=== PATIENT | male | born 1950 | race Caucasian/White ===

== ENCOUNTER 2019-04-30 14:38 | Emergency (ER) | payer OTHER, MEDICARE, BC ==
[2019-04-30] MEDS ORDERED: Metoprolol Tartrate 5 MG/5 ML SDV IVPUSH ONE (17:56)
[2019-04-30] MEDS ORDERED: Metoprolol Tartrate 25 MG Tab PO ONE (18:44)
--- NOTE | 2019-04-30 18:47 | EDM.PDOC ---
ED HPI GENERAL MEDICAL PROBLEM - General Chief Complaint: Cardiovascular Problem Stated Complaint: IRREGULAR HEARTBEAT Time Seen by Provider: 04/30/19 16:15 - History of Present Illness INITIAL COMMENTS - FREE TEXT/NARRATIVE: 68-year-old male presents to the emergency room after being sent here [place] [facility] with atrial fibrillation. The patient was seen in the clinic roughly 2 weeks ago and was not in A. fib he is not sure exactly when he went into A. fib however last Tuesday he had an episode of shortness of breath while climbing some stairs which was unusual for him and he had trouble with shortness of breath the following day the shortness of breath seems to have resolved. The patient was treated at the [place] [facility] a couple weeks ago with antibiotics and steroids for bronchitis. He is still coughing some but nothing like he was. - Related Data Allergies Allergy/AdvReac Type Severity Reaction Status Date / Time No Known Allergies Allergy Verified 04/30/19 14:48 Home Meds: Home Meds Apixaban [Eliquis] 2.5 mg PO Q12H #30 tablet 04/30/19 [Rx] Citalopram Hydrobromide [Celexa] 40 mg PO DAILY 04/30/19 [History] Lisinopril [Zestril] 10 mg PO DAILY 04/30/19 [History] Metoprolol Tartrate [Lopressor] 25 mg PO Q12HR #30 tab 04/30/19 [Rx] Sildenafil [Viagra] 100 mg PO BEDTIME PRN 04/30/19 [History] Sodium Bicarbonate 650 mg PO BID 04/30/19 [History] atorvaSTATin Calcium [Atorvastatin Calcium] 20 mg PO BEDTIME 04/30/19 [History] traZODone HCl [Trazodone HCl] 100 mg PO BEDTIME 04/30/19 [History] Past Medical History HEENT History: Reports: Hard of Hearing Cardiovascular History: Reports: High Cholesterol, Hypertension Respiratory History: Reports: Sleep Apnea Gastrointestinal History: Reports: None Genitourinary History: Reports: Chronic Renal Insuffiency, Other (See Below) Other Genitourinary History: ED Musculoskeletal History: Reports: None Neurological History: Reports: None Psychiatric History: Reports: Depression, Other (See Below) Other Psychiatric History: Insomnia Endocrine/Metabolic History: Reports: Obesity/BMI 30+ Hematologic History: Reports: None Immunologic History: Reports: None Oncologic (Cancer) History: Reports: None Dermatologic History: Reports: None - Infectious Disease History Infectious Disease History: Reports: None Social & Family History - Tobacco Use Smoking Status *Q: Never Smoker - Caffeine Use Caffeine Use: Reports: Coffee - Recreational Drug Use Recreational Drug Use: No ED ROS GENERAL - Review of Systems Review Of Systems: See Below Constitutional: Reports: No Symptoms. Denies: Fever, Chills HEENT: Reports: No Symptoms Respiratory: Reports: Shortness of Breath (Recently this was last week), Cough. Denies: Sputum Cardiovascular: Reports: Dyspnea on Exertion (Last week he had some). Denies: Chest Pain, Edema Endocrine: Reports: No Symptoms GI/Abdominal: Reports: No Symptoms Neurological: Reports: No Symptoms ED EXAM, GENERAL - Physical Exam Exam: See Below Exam Limited By: No Limitations General Appearance: Alert, No Apparent Distress Head: Atraumatic, Normocephalic Neck: Normal Inspection Respiratory/Chest: No Respiratory Distress, Lungs Clear, Normal Breath Sounds Cardiovascular: Regular Rate, Rhythm, No Edema, No Murmur, Irregularly Irregular , Other ([place] in the 120s to 130s just did come down to the 1 teens to 120s) EKG INTERPRETATION Rhythm: A-Fib [place]: Normal P-Wave: Absent QRS: Other (Low voltage in the extremities) ST-T: Normal QT: Normal Course - Vital Signs Last Recorded V/S: Last Vital Signs Temp 36.3 C 04/30/19 14:45 Pulse 118 H 04/30/19 19:25 Resp 20 04/30/19 19:25 BP 134/87 04/30/19 19:25 Pulse Ox 92 L 04/30/19 19:25 - Orders/Labs/Meds Orders: Active Orders 24 hr Category Date Time Status EKG 12 Lead [EKG Documentation Completion] [RC] STAT Care 04/30/19 15:58 Active Chest 1V Frontal [CR] Stat Exams 04/30/19 16:30 Taken Labs: Laboratory Tests 04/30/19 04/30/19 04/30/19 Range/Units 15:00 15:00 15:00 WBC 5.49 (4.23-9.07) K/mm3 RBC 4.85 (4.63-6.08) M/mm3 Hgb 14.6 (13.7-17.5) gm/dl Hct 45.1 (40.1-51.0) % MCV 93.0 H (79.0-92.2) fl MCH 30.1 (25.7-32.2) pg MCHC 32.4 (32.2-35.5) g/dl RDW Std Deviation 46.7 H (35.1-43.9) fL Plt Count 196 (163-337) K/mm3 MPV 11.1 (9.4-12.3) fl Neut % (Auto) 71.0 H (34.0-67.9) % Lymph % (Auto) 15.3 L (21.8-53.1) % [place] % (Auto) 11.7 (5.3-12.2) % Eos % (Auto) 1.6 (0.8-7.0) Baso % (Auto) 0.4 (0.1-1.2) % Neut # (Auto) 3.90 (1.78-5.38) K/mm3 Lymph # (Auto) 0.84 L (1.32-3.57) K/mm3 [place] # (Auto) 0.64 (0.30-0.82) K/mm3 Eos # (Auto) 0.09 (0.04-0.54) K/mm3 Baso # (Auto) 0.02 (0.01-0.08) K/mm3 Sodium 142 (136-145) mEq/L Potassium 4.1 (3.5-5.1) mEq/L Chloride 106 (98-107) mEq/L Carbon Dioxide 30 (21-32) mEq/L Anion Gap 10.1 (5-15) BUN 21 H (7-18) mg/dL Creatinine 2.0 H (0.7-1.3) mg/dL Est Cr Clr Drug Dosing 37.72 mL/min Estimated GFR (MDRD) 33 (>60) mL/min BUN/Creatinine Ratio 10.5 L (14-18) Glucose 107 (80-115) mg/dL Calcium 8.5 (8.5-10.1) mg/dL Total Bilirubin 0.9 (0.2-1.0) mg/dL AST 19 (15-37) U/L ALT 35 (16-63) U/L Alkaline Phosphatase 117 H (46-116) U/L CK-MB (CK-2) 1.4 (0-3.6) ng/ml Troponin I < 0.017 (0.00-0.056) ng/mL Total Protein 7.0 (6.4-8.2) g/dl Albumin 3.5 (3.4-5.0) g/dl Globulin 3.5 gm/dL Albumin/Globulin Ratio 1.0 (1-2) TSH 3rd Generation 1.454 (0.358-3.74) uIU/mL Meds: Medications Discontinued Medications Generic Name Dose Route Start Last Admin Trade Name Kingq PRN Reason Stop Dose Admin Metoprolol Tartrate 5 mg 04/30/19 17:56 04/30/19 18:09 Lopressor IVPUSH 04/30/19 17:57 5 mg ONETIME ONE Administration Metoprolol Tartrate 25 mg 04/30/19 18:44 04/30/19 19:20 Lopressor PO 04/30/19 18:45 25 mg ONETIME ONE Administration - Re-Assessments/Exams Free Text/Narrative Re-Assessment/Exam: 04/30/19 18:43 Atrial fibrillation mild rapid ventricular response usually in the 1 teens occasionally 120s or 130s. And he is asymptomatic with this. We will start him on Lopressor 25 mg twice daily dose may need to be adjusted depending on his pulse and blood pressure. I am was started on Eliquis 5 mg twice daily I discussed the risks of Eliquis such as bleeding however it is much less than the risk of stroke and the patient is willing to give this a try. Should be used with the Lopressor as the citalopram can potentiate the Lopressor so we will start on a fairly low-dose. But this is getting to be watched closely. Departure - Departure Time of Disposition: 18:44 Disposition: Home, Self-Care 01 Clinical Impression: Atrial fibrillation Prescriptions: Metoprolol Tartrate [Lopressor] 25 mg PO Q12HR #30 tab Apixaban [Eliquis] 2.5 mg PO Q12H #30 tablet Instructions: Atrial Fibrillation, [id number] Referrals: Hannah Gannon MD [Primary Care Provider] - Forms: ED Department Discharge Additional Instructions: Return to the emergency room with any questions problems or worsening symptoms. Follow-up with the [place] [facility] this next week for recheck. Take the medications as directed I have given you a 15-day supply of each with 1 refill as [facility] and the Lopressor, or Metroprolol may need its dosage adjusted. At any rate do not allow yourself to run out of these medications. The metoprolol, or Lopressor may be potentiated, or act like a stronger dose, because of the citalopram you are taking. This should not be a big problem it just needs to be monitored closely. Sepsis Event Note - Evaluation Sepsis Screening Result: No Definite Risk - Focused Exam Vital Signs: Vital Signs Temp Pulse Pulse Resp BP BP Pulse Ox 04/30/19 19:25 118 H 20 134/87 92 L 04/30/19 19:20 118 H 134/87 04/30/19 18:09 134 H 134/88 04/30/19 14:45 36.3 C 160 H 18 134/77 95 Date Exam was Performed: 04/30/19 Time Exam was Performed: 22:25 - My Orders Last 24 Hours: My Active Orders 04/30/19 15:58 EKG 12 Lead [EKG Documentation Completion] [RC] STAT 04/30/19 16:30 Chest 1V Frontal [CR] Stat - Assessment/Plan Last 24 Hours: My Active Orders 04/30/19 15:58 EKG 12 Lead [EKG Documentation Completion] [RC] STAT 04/30/19 16:30 Chest 1V Frontal [CR] Stat
--- NOTE | 2019-05-01 09:39 | CR ---
Chest: Portable view of the chest was obtained. Comparison: No previous chest imaging. Heart size is normal. Tortuous thoracic aorta is seen. Lungs are clear with no acute parenchymal change. Bony structures are grossly intact. Impression: 1. Nothing acute is seen on portable chest x-ray. Diagnostic code #1 This report was dictated in [place] Standard Time
== END 2019-04-30 19:24 | disposition home or self-care (01) ==
LOC: JD.ED 14:38
DX: I48.91 Unspecified atrial fibrillation (principal); I12.9 Hypertensive chronic kidney disease with stage 1 through stage 4 chronic kidney disease, or unspecified chronic kidney disease; N18.9 Chronic kidney disease, unspecified; E78.00 Pure hypercholesterolemia, unspecified; Z79.01 Long term (current) use of anticoagulants; Z79.899 Other long term (current) drug therapy
CPT/HCPCS: 36415; 71045; 80053; 82553; 84443; 84484; 85025; 93005; 96374; 99285; A9270; J3490; 93010; 99284

== ENCOUNTER 2019-05-03 09:14 | Emergency (ER) | payer OTHER, MEDICARE, BC ==
[2019-05-03] MEDS ORDERED: Sodium Chloride 0.9% 10 ML Syringe FLUSH PRN (09:42)
[2019-05-03] MEDS ORDERED: Albuterol/Ipratropium 3.0-0.5 MG/3 ML Neb Soln NEB ONE (09:55)
[2019-05-03] MEDS ORDERED: Metoprolol Tartrate 5 MG/5 ML SDV IVPUSH ONE (09:58)
[2019-05-03] MEDS: Diltiazem 50 MG/10 ML SDV IVPUSH ONE ×2 (10:32→12:09)
[2019-05-03] MEDS ORDERED: Furosemide 40 MG/4 ML VIAL IVPUSH ONE (10:50)
--- NOTE | 2019-05-03 10:56 | CR ---
Chest: Portable view of the chest was obtained. Comparison: Prior chest x-ray of 04/30/19. Heart size is normal. Tortuous thoracic aorta is seen. Lungs are clear with no acute parenchymal change. Impression: 1. Nothing acute is appreciated on portable chest x-ray. Diagnostic code #1 This report was dictated in [place] Standard Time
--- NOTE | 2019-05-03 12:01 | EDM.PDOC ---
ED HPI GENERAL MEDICAL PROBLEM - General Chief Complaint: Cardiovascular Problem Stated Complaint: SENT BY ID FOR CHEST ISSUES Time Seen by Provider: 05/03/19 09:25 Source of Information: Reports: Patient, RN Notes Reviewed - History of Present Illness INITIAL COMMENTS - FREE TEXT/NARRATIVE: 68 year old male with cough, dyspnea, not feeling well. [facility] to [facility]. They saw that he was in a fib with RVR and sent him here. He does not currently feel chest pain or palpitations but short of breath with even minimal exertion. He has been coughing for more than 10 days occasionally productive. Has been on an antibiotic. No recent fever or chills. Was recently seen in this ED, found to be in new onset a fib, started on metropolol 25 bid and blood thinner therapy as well. Hx of smoking many yrs ago. - Related Data Allergies Allergy/AdvReac Type Severity Reaction Status Date / Time No Known Allergies Allergy Verified 05/03/19 09:27 Home Meds: Home Meds Apixaban [Eliquis] 2.5 mg PO Q12H #30 tablet 04/30/19 [Rx] Citalopram Hydrobromide [Celexa] 40 mg PO DAILY 04/30/19 [History] Lisinopril [Zestril] 10 mg PO DAILY 04/30/19 [History] Metoprolol Tartrate [Lopressor] 25 mg PO Q12HR #30 tab 04/30/19 [Rx] Sildenafil [Viagra] 100 mg PO BEDTIME PRN 04/30/19 [History] Sodium Bicarbonate 650 mg PO BID 04/30/19 [History] atorvaSTATin Calcium [Atorvastatin Calcium] 20 mg PO BEDTIME 04/30/19 [History] traZODone HCl [Trazodone HCl] 100 mg PO BEDTIME 04/30/19 [History] Diltiazem [Cardizem CD] 120 mg PO DAILY #30 cap.er 05/03/19 [Rx] Furosemide [Lasix] 20 mg PO DAILY #30 tab 05/03/19 [Rx] Past Medical History HEENT History: Reports: Hard of Hearing Cardiovascular History: Reports: Afib, High Cholesterol, Hypertension Respiratory History: Reports: Sleep Apnea Gastrointestinal History: Reports: None Genitourinary History: Reports: Chronic Renal Insuffiency, Other (See Below) Other Genitourinary History: ED Musculoskeletal History: Reports: None Neurological History: Reports: None Psychiatric History: Reports: Depression, Other (See Below) Other Psychiatric History: Insomnia Endocrine/Metabolic History: Reports: Obesity/BMI 30+ Hematologic History: Reports: None Immunologic History: Reports: None Oncologic (Cancer) History: Reports: None Dermatologic History: Reports: None - Infectious Disease History Infectious Disease History: Reports: None Social & Family History - Family History Family Medical History: Noncontributory - Tobacco Use Smoking Status *Q: Never Smoker - Caffeine Use Caffeine Use: Reports: Coffee, Soda - Recreational Drug Use Recreational Drug Use: No ED ROS GENERAL - Review of Systems Review Of Systems: See Below Constitutional: Denies: Fever, Chills, Diaphoresis HEENT: Denies: Rhinitis, Sinus Problem Respiratory: Reports: Shortness of Breath, Wheezing, Cough, Sputum. Denies: Hemoptysis Cardiovascular: Denies: Chest Pain GI/Abdominal: Denies: Abdominal Pain, Nausea, Vomiting Musculoskeletal: Denies: Shoulder Pain, Arm Pain Skin: Reports: No Symptoms Neurological: Reports: No Symptoms ED EXAM, GENERAL - Physical Exam Exam: See Below General Appearance: Alert, Mild Distress Eye Exam: Bilateral Eye: PERRL Nose: Normal Inspection Throat/Mouth: Normal Inspection, Normal Oropharynx Head: Atraumatic Neck: Supple, Full Range of Motion, Other (No JVD) Respiratory/Chest: Wheezing. No: Rales (Moderate bilateral), Rhonchi Cardiovascular: Tachycardia, Irregularly Irregular GI/Abdominal: Soft, Non-Tender Extremities: Normal Inspection, Normal Range of Motion Neurological: Alert, Oriented, No Motor/Sensory Deficits Skin Exam: Warm, Dry, Normal Color EKG INTERPRETATION EKG Date: 05/03/19 Rhythm: A-Fib Rate (Beats/Min): 123 [place]: Normal P-Wave: Absent QRS: Normal ST-T: Normal Course - Vital Signs Last Recorded V/S: Last Vital Signs Temp 97.3 F 05/03/19 09:23 Pulse 118 H 05/03/19 10:10 Resp 20 05/03/19 09:23 BP 144/101 H 05/03/19 10:10 Pulse Ox 91 L 05/03/19 12:40 - Orders/Labs/Meds Labs: Laboratory Tests 05/03/19 05/03/19 05/03/19 Range/Units 09:30 09:30 09:30 WBC 6.19 (4.23-9.07) K/mm3 RBC 4.95 (4.63-6.08) M/mm3 Hgb 15.0 (13.7-17.5) gm/dl Hct 45.5 (40.1-51.0) % MCV 91.9 (79.0-92.2) fl MCH 30.3 (25.7-32.2) pg MCHC 33.0 (32.2-35.5) g/dl RDW Std Deviation 46.1 H (35.1-43.9) fL Plt Count 229 (163-337) K/mm3 MPV 10.4 (9.4-12.3) fl Neut % (Auto) 73.6 H (34.0-67.9) % Lymph % (Auto) 12.6 L (21.8-53.1) % [place] % (Auto) 11.0 (5.3-12.2) % Eos % (Auto) 2.6 (0.8-7.0) Baso % (Auto) 0.2 (0.1-1.2) % Neut # (Auto) 4.56 (1.78-5.38) K/mm3 Lymph # (Auto) 0.78 L (1.32-3.57) K/mm3 [place] # (Auto) 0.68 (0.30-0.82) K/mm3 Eos # (Auto) 0.16 (0.04-0.54) K/mm3 Baso # (Auto) 0.01 (0.01-0.08) K/mm3 Sodium 141 (136-145) mEq/L Potassium 4.5 (3.5-5.1) mEq/L Chloride 105 (98-107) mEq/L Carbon Dioxide 28 (21-32) mEq/L Anion Gap 12.5 (5-15) BUN 25 H (7-18) mg/dL Creatinine 2.0 H (0.7-1.3) mg/dL Est Cr Clr Drug Dosing 37.72 mL/min Estimated GFR (MDRD) 33 (>60) mL/min BUN/Creatinine Ratio 12.5 L (14-18) Glucose 114 (80-115) mg/dL Calcium 8.8 (8.5-10.1) mg/dL Total Bilirubin 0.9 (0.2-1.0) mg/dL AST 21 (15-37) U/L ALT 33 (16-63) U/L Alkaline Phosphatase 123 H (46-116) U/L Troponin I < 0.017 (0.00-0.056) ng/mL C-Reactive Protein (<1.0) mg/dL NT-Pro-B Natriuret Pep 2784 H (0-125) pg/mL Total Protein 7.7 (6.4-8.2) g/dl Albumin 3.6 (3.4-5.0) g/dl Globulin 4.1 gm/dL Albumin/Globulin Ratio 0.9 L (1-2) 05/03/19 Range/Units 09:30 WBC (4.23-9.07) K/mm3 RBC (4.63-6.08) M/mm3 Hgb (13.7-17.5) gm/dl Hct (40.1-51.0) % MCV (79.0-92.2) fl MCH (25.7-32.2) pg MCHC (32.2-35.5) g/dl RDW Std Deviation (35.1-43.9) fL Plt Count (163-337) K/mm3 MPV (9.4-12.3) fl Neut % (Auto) (34.0-67.9) % Lymph % (Auto) (21.8-53.1) % [place] % (Auto) (5.3-12.2) % Eos % (Auto) (0.8-7.0) Baso % (Auto) (0.1-1.2) % Neut # (Auto) (1.78-5.38) K/mm3 Lymph # (Auto) (1.32-3.57) K/mm3 [place] # (Auto) (0.30-0.82) K/mm3 Eos # (Auto) (0.04-0.54) K/mm3 Baso # (Auto) (0.01-0.08) K/mm3 Sodium (136-145) mEq/L Potassium (3.5-5.1) mEq/L Chloride (98-107) mEq/L Carbon Dioxide (21-32) mEq/L Anion Gap (5-15) BUN (7-18) mg/dL Creatinine (0.7-1.3) mg/dL Est Cr Clr Drug Dosing mL/min Estimated GFR (MDRD) (>60) mL/min BUN/Creatinine Ratio (14-18) Glucose (80-115) mg/dL Calcium (8.5-10.1) mg/dL Total Bilirubin (0.2-1.0) mg/dL AST (15-37) U/L ALT (16-63) U/L Alkaline Phosphatase (46-116) U/L Troponin I (0.00-0.056) ng/mL C-Reactive Protein 5.5 H* (<1.0) mg/dL NT-Pro-B Natriuret Pep (0-125) pg/mL Total Protein (6.4-8.2) g/dl Albumin (3.4-5.0) g/dl Globulin gm/dL Albumin/Globulin Ratio (1-2) Meds: Medications Discontinued Medications Generic Name Dose Route Start Last Admin Trade Name Freq PRN Reason Stop Dose Admin Albuterol 2.5 mg 05/03/19 12:40 05/03/19 12:46 Proventil Neb Soln [facility] 05/03/19 12:41 2.5 mg ONETIME ONE Administration Albuterol/Ipratropium 3 ml 05/03/19 09:55 05/03/19 09:59 Duoneb 3.0-0.5 Mg/3 Ml [facility] 05/03/19 09:56 3 ml ONETIME ONE Administration Diltiazem HCl 20 mg 05/03/19 10:26 05/03/19 12:09 Cardizem IVPUSH 05/03/19 10:27 5 mg ONETIME ONE Administration Furosemide 40 mg 05/03/19 10:50 05/03/19 11:06 Lasix IVPUSH 05/03/19 10:51 40 mg NOW ONE Administration Metoprolol Tartrate 5 mg 05/03/19 09:58 05/03/19 10:10 Lopressor IVPUSH 05/03/19 09:59 5 mg ONETIME ONE Administration Sodium Chloride 10 ml 05/03/19 09:42 05/03/19 09:46 Saline Flush FLUSH 10 ml ASDIRECTED PRN Administration Keep Vein Open - Re-Assessments/Exams Free Text/Narrative Re-Assessment/Exam: 05/05/19 07:35 Labs did come back relatively normal, presents present with A. fib RSR also moderate wheezing, very mild pulmonary congestion on his chest x-ray read out as normal by radiologist. He was given a DuoNeb and that did help clear his wheezing quite a lot. With his evidence of mild pulmonary congestion on his chest x-ray he was given 40 of Lasix IV and did void a fair amount while in the ED. He was given 5 mg Lopressor IV which slowed his rate a small amount but not significantly. In 10 mg diltiazem which did bring his rate down into the 90s to low 100s. An additional 5 mg diltiazem IV prior to discharge. He was feeling much better at time of discharge. Discharge instructions as documented. Departure - Departure Time of Disposition: 11:58 Disposition: Home, Self-Care 01 Condition: Fair Clinical Impression: Atrial fibrillation with RVR, Dyspnea, Congestive heart failure (CHF), Renal insufficiency syndrome Prescriptions: Diltiazem [Cardizem CD] 120 mg PO DAILY #30 cap.er Furosemide [Lasix] 20 mg PO DAILY #30 tab Instructions: Heart Failure, [id number], Heart-Healthy Eating Plan, Atrial Fibrillation, [id number] Referrals: Hannah Gannon MD [Primary Care Provider] - Forms: ED Department Discharge Additional Instructions: Continue metoprolol 25 mg twice daily and other medications as previously prescribed. Cardizem 120 mg daily with your first dose as soon as you get your prescription filled today. Lasix 20 mg every morning. The prescriptions for the Cardizem and the Lasix have been sent electronically to your regular pharmacy. First dose of Lasix has been given here in the ED IV. Albuterol inhaler 2 puffs every 4-6 hours as needed eating, severe cough or difficulty breathing. [facility], return to ED as needed if symptoms worsening in any way. Sepsis Event Note - Evaluation Sepsis Screening Result: No Definite Risk - Focused Exam Date Exam was Performed: 05/05/19 Time Exam was Performed: 07:21
[2019-05-03] MEDS ORDERED: Albuterol 0.083% 2.5 MG/3 ML Neb Soln NEB ONE (12:40)
== END 2019-05-03 13:13 | disposition home or self-care (01) ==
LOC: JD.ED 09:14
DX: I13.0 Hypertensive heart and chronic kidney disease with heart failure and stage 1 through stage 4 chronic kidney disease, or unspecified chronic kidney disease (principal); I50.9 Heart failure, unspecified; I48.91 Unspecified atrial fibrillation; E78.00 Pure hypercholesterolemia, unspecified; N18.9 Chronic kidney disease, unspecified; F32.9 Major depressive disorder, single episode, unspecified; E66.9 Obesity, unspecified; Z79.01 Long term (current) use of anticoagulants; Z79.899 Other long term (current) drug therapy; Z68.35 Body mass index [BMI] 35.0-35.9, adult
CPT/HCPCS: 36415; 71045; 80053; 83880; 84484; 85025; 86140; 93005; 94640; 96374; 96375; 96376; 99285; J1940; J3490; 93010; 99283; J7620-GY

== ENCOUNTER 2019-07-20 09:41 | Emergency (ER) | payer OTHER, MEDICARE, BC ==
[2019-07-20] MEDS ORDERED: Sodium Chloride 0.9% 10 ML Syringe FLUSH PRN (09:57)
[2019-07-20] MEDS ORDERED: Albuterol 6.7 GM Inhaler INH ONE (10:15)
--- NOTE | 2019-07-20 10:25 | EDM.PDOC ---
ED HPI GENERAL MEDICAL PROBLEM - General Chief Complaint: Respiratory Problem Stated Complaint: FLUID IN LUNGS/POST HEART SURGERY Time Seen by Provider: 07/20/19 09:57 Source of Information: Reports: Patient History Limitations: Reports: No Limitations - History of Present Illness INITIAL COMMENTS - FREE TEXT/NARRATIVE: [place] [facility] for shortness of breath. He had a valve replaced and 4 vessel bypass 2 weeks ago. He had a follow up appointment in [place] yesterday and it was found he had a pleural effusion. He is not sure on what side. He had a thorocentesis done and they removed 2L according to the patient. This morning he had shortness of breath. He called his cardiology team and they recommended he go to his primary care provider and get a CXR. The [facility] sent him to the ER to be evaluated. They said his oxygen saturations were low in the upper 60s. When he arrived here his sats were 94%. He has some gurgling lung sounds when her breaths. He has no chest pain but he is short of breath. He has no abdominal pain, nausea or vomiting. He has some swelling in both legs but none more then normal. Onset: Gradual Duration: Hour(s): Severity: Moderate Improves with: Reports: None Worsens with: Reports: None Associated Symptoms: Reports: Shortness of Breath. Denies: Chest Pain, Cough, Fever/Chills, Headaches, Nausea/Vomiting - Related Data Allergies Allergy/AdvReac Type Severity Reaction Status Date / Time No Known Allergies Allergy Verified 07/20/19 10:01 Home Meds: Home Meds Citalopram Hydrobromide [Celexa] 20 mg PO DAILY 04/30/19 [History] Sodium Bicarbonate 650 mg PO BID 04/30/19 [History] atorvaSTATin Calcium [Atorvastatin Calcium] 20 mg PO BEDTIME 04/30/19 [History] lisinopriL [Zestril] 5 mg PO DAILY 04/30/19 [History] traZODone HCl [Trazodone HCl] 100 mg PO BEDTIME 04/30/19 [History] Amiodarone [Cordarone] 200 mg PO DAILY 07/20/19 [History] Apixaban [Eliquis] 5 mg PO BID 07/20/19 [History] Aspirin 81 mg PO DAILY 07/20/19 [History] Finasteride [Proscar] 5 mg PO DAILY 07/20/19 [History] Metoprolol Succinate [Kapspargo Sprinkle] 75 mg PO BID 07/20/19 [History] Past Medical History HEENT History: Reports: Hard of Hearing Cardiovascular History: Reports: Afib, High Cholesterol, Hypertension Respiratory History: Reports: Sleep Apnea Gastrointestinal History: Reports: None Genitourinary History: Reports: Chronic Renal Insuffiency, Other (See Below) Other Genitourinary History: ED Musculoskeletal History: Reports: None Neurological History: Reports: None Psychiatric History: Reports: Depression, Other (See Below) Other Psychiatric History: Insomnia Endocrine/Metabolic History: Reports: Obesity/BMI 30+ Hematologic History: Reports: None Immunologic History: Reports: None Oncologic (Cancer) History: Reports: None Dermatologic History: Reports: None - Infectious Disease History Infectious Disease History: Reports: None Social & Family History - Family History Family Medical History: Noncontributory - Tobacco Use Smoking Status *Q: Never Smoker - Caffeine Use Caffeine Use: Reports: None - Recreational Drug Use Recreational Drug Use: No ED ROS GENERAL - Review of Systems Review Of Systems: See Below Constitutional: Reports: No Symptoms HEENT: Reports: No Symptoms Respiratory: Reports: Shortness of Breath. Denies: Cough Cardiovascular: Reports: No Symptoms Endocrine: Reports: No Symptoms GI/Abdominal: Reports: No Symptoms : Reports: No Symptoms ED EXAM, GENERAL - Physical Exam Exam: See Below Exam Limited By: No Limitations General Appearance: Alert, No Apparent Distress Ears: Normal External Exam Nose: Normal Inspection Head: Atraumatic, Normocephalic Neck: Normal Inspection Respiratory/Chest: No Respiratory Distress, Rhonchi Cardiovascular: Regular Rate, Rhythm, No Edema, No Murmur GI/Abdominal: Soft, Non-Tender, No Organomegaly, No Mass Back Exam: Normal Inspection Extremities: Normal Inspection Course - Vital Signs Last Recorded V/S: Last Vital Signs Temp 97.5 F 07/20/19 09:54 Pulse 91 07/20/19 09:54 Resp 22 H 07/20/19 09:54 BP 103/65 07/20/19 09:54 Pulse Ox 94 L 07/20/19 09:54 - Orders/Labs/Meds Orders: Active Orders 24 hr Category Date Time Status Cardiac Monitoring [RC] . DIRECTED Care 07/20/19 09:57 Active EKG Documentation Completion [RC] STAT Care 07/20/19 09:58 Active Oxygen Therapy [RC] PRN Care 07/20/19 09:57 Active Peripheral IV Care [RC] . DIRECTED Care 07/20/19 09:58 Active RT Post Treatment Assessment [RC] Click to Edit Care 07/20/19 10:16 Active RT Pre-Treatment Assessment [RC] Click to Edit Care 07/20/19 10:16 Active Sodium Chloride 0.9% [Saline Flush] Med 07/20/19 09:57 Active 10 ml FLUSH ASDIRECTED PRN Peripheral IV Insertion Adult [OM.PC] Stat Oth 07/20/19 09:57 Ordered Medication Orders Sodium Chloride (Saline Flush) 10 ml FLUSH ASDIRECTED PRN PRN Reason: Keep Vein Open Labs: Laboratory Tests 07/20/19 07/20/19 07/20/19 Range/Units 10:26 10:26 10:26 WBC 6.48 (4.23-9.07) K/mm3 RBC 3.16 L (4.63-6.08) M/mm3 Hgb 9.4 L D (13.7-17.5) gm/dl Hct 30.9 L (40.1-51.0) % MCV 97.8 H D (79.0-92.2) fl MCH 29.7 (25.7-32.2) pg MCHC 30.4 L (32.2-35.5) g/dl RDW Std Deviation 50.2 H (35.1-43.9) fL Plt Count 406 H D (163-337) K/mm3 MPV 9.7 (9.4-12.3) fl Neut % (Auto) 73.4 H (34.0-67.9) % Lymph % (Auto) 12.5 L (21.8-53.1) % [place] % (Auto) 12.8 H (5.3-12.2) % Eos % (Auto) 0.6 L (0.8-7.0) Baso % (Auto) 0.5 (0.1-1.2) % Neut # (Auto) 4.76 (1.78-5.38) K/mm3 Lymph # (Auto) 0.81 L (1.32-3.57) K/mm3 [place] # (Auto) 0.83 H (0.30-0.82) K/mm3 Eos # (Auto) 0.04 (0.04-0.54) K/mm3 Baso # (Auto) 0.03 (0.01-0.08) K/mm3 Sodium 142 (136-145) mEq/L Potassium 5.9 H (3.5-5.1) mEq/L Chloride 107 (98-107) mEq/L Carbon Dioxide 27 (21-32) mEq/L Anion Gap 13.9 (5-15) BUN 39 H (7-18) mg/dL Creatinine 2.4 H (0.7-1.3) mg/dL Est Cr Clr Drug Dosing TNP Estimated GFR (MDRD) 27 (>60) mL/min BUN/Creatinine Ratio 16.3 (14-18) Glucose 110 (83-115) mg/dL Calcium 8.6 (8.5-10.1) mg/dL Total Bilirubin 1.0 (0.2-1.0) mg/dL AST 26 (15-37) U/L ALT 40 (16-63) U/L Alkaline Phosphatase 119 H (46-116) U/L Troponin I 0.058 H* (0.00-0.056) ng/mL C-Reactive Protein 4.0 H* (<1.0) mg/dL NT-Pro-B Natriuret Pep 4902 H (0-125) pg/mL Total Protein 6.3 L (6.4-8.2) g/dl Albumin 3.1 L (3.4-5.0) g/dl Globulin 3.2 gm/dL Albumin/Globulin Ratio 1.0 (1-2) Meds: Medications Generic Name Dose Route Start Last Admin Trade Name Freq PRN Reason Stop Dose Admin Sodium Chloride 10 ml 07/20/19 09:57 Saline Flush FLUSH ASDIRECTED PRN Keep Vein Open Discontinued Medications Generic Name Dose Route Start Last Admin Trade Name Freq PRN Reason Stop Dose Admin Albuterol 0 gm 07/20/19 10:15 07/20/19 10:37 Proventil Hfa INH 07/20/19 10:16 2 puff ONETIME ONE Administration - Re-Assessments/Exams Free Text/Narrative Re-Assessment/Exam: 07/20/19 10:27 I ordered an IV saline lock, CXR, oxygen PRN, labs and a CXR. I also ordered albuterol 2 puffs. 07/20/19 12:09 His Hgb is low at 9.4. His K was elevated at 5.9. His creatinine was elevated at 2.4. His baseline is 2 here. His troponin is elevated at 0.058. I would suspect that after surgery. His BNP was elevated at 4902. His CRP is 4. He feels much better now. His lung sounds are clear. I called Dr Dasilva at [facility] and he recommended I have him use the inhaler as needed. I will discharge him home on the inhaler. Departure - Departure Time of Disposition: 12:15 Disposition: Home, Self-Care 01 Condition: Good Clinical Impression: Renal insufficiency syndrome, Hyperkalemia Anemia Qualifiers: Anemia type: other cause Other causes of anemia: other cause, not classified Qualified Code(s): D64.89 - Other specified anemias Atrial fibrillation Qualifiers: Atrial fibrillation type: unspecified Qualified Code(s): I48.91 - Unspecified atrial fibrillation Reactive airway disease Qualifiers: Asthma severity: mild Asthma persistence: intermittent Asthma complication type : uncomplicated Qualified Code(s): J45.20 - Mild intermittent asthma, uncomplicated - Discharge Information *PRESCRIPTION DRUG MONITORING PROGRAM REVIEWED*: Not Applicable *COPY OF PRESCRIPTION DRUG MONITORING REPORT IN PATIENT TAMIR: Not Applicable Referrals: Hannah Gannon MD [Primary Care Provider] - 1 Week Forms: ED Department Discharge Additional Instructions: Take your medications as prescribed. Use the inhaler 2 puffs every 6 hours as needed for shortness of breath. Please return if you are worse. Sepsis Event Note - Evaluation Sepsis Screening Result: Possible Sepsis Risk - Focused Exam Vital Signs: Vital Signs Temp Pulse Resp BP Pulse Ox 07/20/19 09:54 97.5 F 91 22 H 103/65 94 L Date Exam was Performed: 07/20/19 Time Exam was Performed: 12:09 - My Orders Last 24 Hours: My Active Orders 07/20/19 09:57 Cardiac Monitoring [RC] . DIRECTED Oxygen Therapy [RC] PRN Sodium Chloride 0.9% [Saline Flush] 10 ml FLUSH ASDIRECTED PRN Peripheral IV Insertion Adult [OM.PC] Stat 07/20/19 09:58 EKG Documentation Completion [RC] STAT Peripheral IV Care [RC] . DIRECTED 07/20/19 10:16 RT Post Treatment Assessment [RC] Click to Edit RT Pre-Treatment Assessment [RC] Click to Edit - Assessment/Plan Last 24 Hours: My Active Orders 07/20/19 09:57 Cardiac Monitoring [RC] . DIRECTED Oxygen Therapy [RC] PRN Sodium Chloride 0.9% [Saline Flush] 10 ml FLUSH ASDIRECTED PRN Peripheral IV Insertion Adult [OM.PC] Stat 07/20/19 09:58 EKG Documentation Completion [RC] STAT Peripheral IV Care [RC] . DIRECTED 07/20/19 10:16 RT Post Treatment Assessment [RC] Click to Edit RT Pre-Treatment Assessment [RC] Click to Edit
--- NOTE | 2019-07-20 11:31 | CR ---
Chest: 2 views of the chest were obtained. Comparison: Prior chest x-ray of 05/03/19. Small left-sided pleural effusion is seen. Heart is mildly enlarged. Sternotomy and prosthetic heart valves are seen. Lungs otherwise are clear. Impression: 1. Small left-sided pleural effusion which most likely relates to recent surgery. 2. Sternotomy is noted with 2 prosthetic heart valves. 3. Nothing acute is otherwise seen. Diagnostic code #3 This report was dictated in MDT
== END 2019-07-20 12:38 | disposition home or self-care (01) ==
LOC: JD.ED 09:41
DX: J45.20 Mild intermittent asthma, uncomplicated (principal); D64.89 Other specified anemias; I48.91 Unspecified atrial fibrillation; E87.5 Hyperkalemia; I12.9 Hypertensive chronic kidney disease with stage 1 through stage 4 chronic kidney disease, or unspecified chronic kidney disease; N18.9 Chronic kidney disease, unspecified; E78.00 Pure hypercholesterolemia, unspecified; F32.9 Major depressive disorder, single episode, unspecified; E66.9 Obesity, unspecified; Z79.01 Long term (current) use of anticoagulants; Z68.42 Body mass index [BMI] 45.0-49.9, adult
CPT/HCPCS: 36415; 71046; 80053; 83880; 84484; 85025; 86140; 93005; 99285; A9270; 99284

== ENCOUNTER 2020-01-07 12:47 | Emergency (ER) | payer MEDICARE, BC ==
[2020-01-07] MEDS ORDERED: Diphtheria,Pertussis(Acell),Tetanus Vaccine 0.5 ML Syringe IM ONE (13:13)
[2020-01-07] MEDS ORDERED: Lidocaine 1% 10 ML MDV INJECT ONE (13:14)
--- NOTE | 2020-01-07 13:19 | EDM.PDOC ---
ED HPI GENERAL MEDICAL PROBLEM - General Chief Complaint: Bite:Animal, Insect Stated Complaint: DOG BITE Time Seen by Provider: 01/07/20 13:02 Source of Information: Reports: Patient, RN Notes Reviewed History Limitations: Reports: No Limitations - History of Present Illness INITIAL COMMENTS - FREE TEXT/NARRATIVE: Patient is a 69-year-old male who presents to the ED for the evaluation of his dog bite. Patient notes that around 10:30 AM, he broke up a fight between his dogs, all of which are up-to-date on vaccinations. He did receive quite a few different nicks and scrapes on his bilateral arms, there are 2 that are concerning for repair, one on the right thenar eminence of the palmar surface of the right hand. This measures roughly 2 cm in length. There is another area on the patient's left thumb as well, that is about 1.5 cm, slightly deep and somewhat gaping. All of which are oozing blood but not actively bleeding. He does have approximately 20-22 other small skin flaps skin tear lesions on his bilateral right and left forearms and hands. There is also quite a large hematoma on the patient's left forearm. Patient's not having pain anywhere, he has normal range of motion in all extremities, and he is denying any numbness or tingling. Nursing staff did cleanse this with saline and chlorhexidine at time of triage. He is not up-to-date on his tetanus, he was offered influenza vaccine today and would take this as well. Patient denies any other sick-like symptoms, fever/chills, cough/shortness of breath, nausea/vomiting/diarrhea. Bilateral Arm Pain Score (Numeric/FACES): 3 - Related Data Allergies Allergy/AdvReac Type Severity Reaction Status Date / Time No Known Allergies Allergy Verified 01/07/20 13:05 Home Meds: Home Meds Citalopram Hydrobromide [Celexa] 20 mg PO DAILY 04/30/19 [History] Sodium Bicarbonate 650 mg PO BID 04/30/19 [History] atorvaSTATin Calcium [Atorvastatin Calcium] 20 mg PO BEDTIME 04/30/19 [History] lisinopriL [Zestril] 5 mg PO DAILY 04/30/19 [History] traZODone HCl [Trazodone HCl] 100 mg PO BEDTIME 04/30/19 [History] Amiodarone [Cordarone] 200 mg PO DAILY 07/20/19 [History] Apixaban [Eliquis] 5 mg PO BID 07/20/19 [History] Aspirin 81 mg PO DAILY 07/20/19 [History] Finasteride [Proscar] 5 mg PO DAILY 07/20/19 [History] Metoprolol Succinate [Kapspargo Sprinkle] 75 mg PO BID 07/20/19 [History] Amoxicillin/Clavulanate K [Augmentin 875-125 MG] 1 tab PO BID #14 tablet 01/07/20 [Rx] Past Medical History HEENT History: Reports: Hard of Hearing Cardiovascular History: Reports: Afib, High Cholesterol, Hypertension Respiratory History: Reports: Sleep Apnea Gastrointestinal History: Reports: None Genitourinary History: Reports: Chronic Renal Insuffiency, Other (See Below) Other Genitourinary History: ED Musculoskeletal History: Reports: None Neurological History: Reports: None Psychiatric History: Reports: Depression, Other (See Below) Other Psychiatric History: Insomnia Endocrine/Metabolic History: Reports: Obesity/BMI 30+ Hematologic History: Reports: None Immunologic History: Reports: None Oncologic (Cancer) History: Reports: None Dermatologic History: Reports: None - Infectious Disease History Infectious Disease History: Reports: None - Past Surgical History Cardiovascular Surgical History: Reports: Valve Replacement, Other (See Below) Other Cardiovascular Surgeries/Procedures: four bypasses Social & Family History - Family History Family Medical History: Noncontributory - Tobacco Use Smoking Status *Q: Never Smoker - Caffeine Use Caffeine Use: Reports: None - Recreational Drug Use Recreational Drug Use: No ED ROS GENERAL - Review of Systems Review Of Systems: Comprehensive ROS is negative, except as noted in HPI. ED EXAM, ANIMAL BITE - Physical Exam Exam: See Below Exam Limited By: No Limitations General Appearance: Alert, WD/WN, No Apparent Distress Respiratory/Chest: No Respiratory Distress, Lungs Clear, Normal Breath Sounds, No Accessory Muscle Use, Chest Non-Tender Cardiovascular: Normal Peripheral Pulses, Regular Rate, Rhythm, No Murmur Peripheral Pulses: 2+: Radial (L), Radial (R) Extremities: Normal Range of Motion, Normal Capillary Refill Neurological: Alert, Oriented, Normal Cognition, No Motor/Sensory Deficits Psychiatric: Normal Affect, Normal Mood Skin Exam: Normal Color, Warm/Dry, Other (Multiple lesions on bilateral that should heal well forearms, most of which are skin tears, wound #1 needing repair is on the patient's right thenar eminence. Roughly 2 cm in length, fairly linear, nonbleeding. Wound #2 on the patient's left thumb, roughly 1.5 cm, not bleeding, slightly gaping, but approximates well when pushed back together. There is a large hematoma on the patient's left posterior forearm, near the wrist joint, that should resolve well with a pressure bandage.) ED ANIMAL BITE PROCEDURES - Laceration/Wound Repair Right Anterior Proximal Digit - 1st (Thumb) Lac/Wound Length In cm: 2 Appearance: Subcutaneous, Linear, Clean Distal NVT: Neuro & Vascular Intact, No Tendon Injury Anesthetic Type: Local Local Anesthesia - Lidocaine (Xylocaine): 1% Plain Local Anesthetic Volume: 4cc Skin Prep: Chlorhexidine (Hibiciens), Saline Exploration/Debridement/Repair: Wound Explored, In a Bloodless Field, Explored to Base, No Foreign Material Found Closed With: Sutures Suture Size: 4-0 # of Sutures: 4 Suture Type: Prolene, Interrupted, Simple Sterile Dressing Applied: Nurse Tetanus Status Addressed: Yes (updated at today's visit) Complications: No Left Digit - 1st (Thumb) Lac/Wound Length In cm: 1.5 Appearance: Superficial, Linear, Clean Distal NVT: Neuro & Vascular Intact, No Tendon Injury Skin Prep: Chlorhexidine (Hibiciens), Saline Exploration/Debridement/Repair: Wound Explored, In a Bloodless Field, Explored to Base, No Foreign Material Found Closed With: Steri-Strips (pt requested this area not be repaired by sutures and a bandage placed only) Sterile Dressing Applied: Nurse Tetanus Status Addressed: Yes Complications: No Course - Vital Signs Last Recorded V/S: Last Vital Signs Temp 97.2 F 01/07/20 13:01 Pulse 67 01/07/20 13:01 Resp 16 01/07/20 13:01 BP Pulse Ox 100 01/07/20 13:01 - Orders/Labs/Meds Orders: Active Orders 24 hr Category Date Time Status Influenza Vaccine Charge [RC] .DISCHARGE Care 01/07/20 13:14 Ordered Vaccines to be Administered [RC] PER UNIT ROUTINE Care 01/07/20 13:14 Ordered Meds: Medications Discontinued Medications Generic Name Dose Route Start Last Admin Trade Name Freq PRN Reason Stop Dose Admin Diphtheria/Tetanus/Acell Pertussis 0.5 ml 01/07/20 13:13 01/07/20 13:39 Adacel IM 01/07/20 13:14 0.5 ml .ONCE ONE Administration Influenza Virus Vaccine 240 mcg 01/07/20 13:30 01/07/20 13:37 Fluzone High-Dose Quad 2020-21 IM 01/07/20 13:31 240 mcg .ONCE ONE Administration Lidocaine HCl 10 ml 01/07/20 13:14 01/07/20 13:37 Xylocaine 1% INJECT 01/07/20 13:15 10 ml ONETIME ONE Administration Departure - Departure Time of Disposition: : Disposition: Home, Self-Care 01 Condition: Good Clinical Impression: Dog bite of extremity - Discharge Information *PRESCRIPTION DRUG MONITORING PROGRAM REVIEWED*: No *COPY OF PRESCRIPTION DRUG MONITORING REPORT IN PATIENT TAMIR: No Prescriptions: Amoxicillin/Clavulanate K [Augmentin 875-125 MG] 1 tab PO BID #14 tablet Instructions: Animal Bite, Adult, [id number] Referrals: Hannah Gannon MD [Primary Care Provider] - Forms: ED Department Discharge Additional Instructions: You have been evaluated in the ED for your laceration. Sutures will need to stay in for 10 to 14 days. Due to these lacerations being a result of a dog bite, you will be placed on Augmentin, 1 tab 2 times a day for the next 7 days. You may return to the ED or any clinic for removal. Please keep this area clean and dry, you may cleanse with regular soap and water. No vigorous scrubbing. Please try to avoid submerging the affected area in water for prolonged periods of time until the sutures are removed. Watch out for signs of infection like increased redness, swelling, pain at the laceration site, or if you should develop any fevers or chills. Please return to ED if your symptoms change or worsen. Sepsis Event Note (ED) - Evaluation Sepsis Screening Result: No Definite Risk - Focused Exam Vital Signs: Vital Signs Temp Pulse Resp Pulse Ox 01/07/20 13:01 97.2 F 67 16 100 - My Orders Last 24 Hours: My Active Orders 01/07/20 13:14 Influenza Vaccine Charge [RC] .DISCHARGE Vaccines to be Administered [RC] PER UNIT ROUTINE - Assessment/Plan Last 24 Hours: My Active Orders 01/07/20 13:14 Influenza Vaccine Charge [RC] .DISCHARGE Vaccines to be Administered [RC] PER UNIT ROUTINE
[2020-01-07] MEDS ORDERED: FLU Vacc QV2020-21(65YR UP)/PF 240 MCG/0.7 ML Syringe IM ONE (13:30)
== END 2020-01-07 14:30 | disposition home or self-care (01) ==
LOC: JD.ED 12:47
DX: S61.052A Open bite of left thumb without damage to nail, initial encounter (principal); S61.051A Open bite of right thumb without damage to nail, initial encounter; I48.91 Unspecified atrial fibrillation; E78.00 Pure hypercholesterolemia, unspecified; I12.9 Hypertensive chronic kidney disease with stage 1 through stage 4 chronic kidney disease, or unspecified chronic kidney disease; N18.9 Chronic kidney disease, unspecified; F32.9 Major depressive disorder, single episode, unspecified; E66.9 Obesity, unspecified; Z68.36 Body mass index [BMI] 36.0-36.9, adult; Z79.82 Long term (current) use of aspirin; Z79.01 Long term (current) use of anticoagulants; Z79.899 Other long term (current) drug therapy; Z23 Encounter for immunization; W54.0XXA Bitten by dog, initial encounter
CPT/HCPCS: 12001; 90471; 90662; 90715; 99283; G0008; J2001; 12002

== ENCOUNTER 2021-04-25 14:20 | Emergency (ER) | payer MEDICARE, BC ==
[2021-04-25 15:37] LABS: CORONAVIRUS COVID-19 NAA POSITIVE (NEGATIVE)
[2021-04-25] MEDS ORDERED: Sodium Chloride 0.9% 10 ML Syringe FLUSH PRN (15:37)
== END 2021-04-25 18:00 | disposition home or self-care (01) ==
LOC: JD.ED 14:20
DX: U07.1 COVID-19 (principal); I48.91 Unspecified atrial fibrillation; E78.00 Pure hypercholesterolemia, unspecified; I12.9 Hypertensive chronic kidney disease with stage 1 through stage 4 chronic kidney disease, or unspecified chronic kidney disease; N18.9 Chronic kidney disease, unspecified; E66.9 Obesity, unspecified; Z68.38 Body mass index [BMI] 38.0-38.9, adult; Z87.891 Personal history of nicotine dependence; Z79.82 Long term (current) use of aspirin; Z79.02 Long term (current) use of antithrombotics/antiplatelets; Z79.899 Other long term (current) drug therapy
CPT/HCPCS: 0240U; 36415; 71045; 80053; 83735; 84484; 85025; 85379; 86140; 93005; 99284; 93010

== ENCOUNTER 2022-07-24 22:34 | Emergency (ER) | payer MEDICARE, BC ==
[2022-07-24 23:22] LABS: ESTIMATED GFR 28 mL/min (>60)
[2022-07-24] MEDS ORDERED: Sodium Chloride 0.9% 1,000 ML IV SCH (23:45)
[2022-07-24] MEDS ORDERED: Midodrine 5 MG Tab PO ONE (23:47)
[2022-07-25] MEDS ORDERED: Lactated Ringers 500 ML IV ONE ×2 (01:20→02:31)
== END 2022-07-25 08:00 ==
LOC: JD.ED 22:34 → SUPCPDRO 22:34 → JD.ED 07-25 08:00
DX: K11.7 Disturbances of salivary secretion (principal); I48.91 Unspecified atrial fibrillation; E78.00 Pure hypercholesterolemia, unspecified; I12.9 Hypertensive chronic kidney disease with stage 1 through stage 4 chronic kidney disease, or unspecified chronic kidney disease; N18.9 Chronic kidney disease, unspecified; E66.9 Obesity, unspecified; Z68.30 Body mass index [BMI] 30.0-30.9, adult; Z79.02 Long term (current) use of antithrombotics/antiplatelets; Z79.01 Long term (current) use of anticoagulants
CPT/HCPCS: 36415; 70450; 71045; 71250; 80053; 83605; 83735; 84484; 85025; 85610; 85730; 87040; 93005; 94660; 96360; 96361; 99285; A9270; J7030; J7120; 93010; 99283